=== PATIENT | male | born 1965 | race Caucasian/White ===

== ENCOUNTER 2020-11-15 21:20 | Emergency (ER) | payer MEDICAID ==
[~2020-11-15] VITALS: Ht 175.3 cm; Wt 74.0 kg
[2020-11-15 22:21] LABS: BASOPHILS % (AUTO) 1 % (0-1); EOSINOPHILS % (AUTO) 1 % (1-7); LYMPHOCYTES % (AUTO) 26 % (22-44); MEAN CORPUSCULAR HEMOGLOBIN 29.6 pg (27.5-34.5); MEAN CORPUSCULAR HGB CONC 33.6 g/dL (33.2-36.2); MEAN PLATELET VOLUME 8.5 fL (7.4-10.4); MONOCYTES % (AUTO) 9 % (2-9); NEUTROPHILS % (AUTO) 62 % (42-75); PLATELET COUNT 258 x10^3/uL (130-400); RED BLOOD COUNT 4.28 x10^6/uL (4.38-5.82); RED CELL DISTRIBUTION WIDTH 13.5 % (9.4-14.8)
[2020-11-15 22:29] LABS: MD NO
[2020-11-15 22:31] LABS: ALBUMIN 4.4 g/dL (3.4-5.0); ANION GAP 7 mmol/L (5-15); CALCIUM 9.4 mg/dL (8.5-10.1); CHLORIDE 114 mmol/L (98-107)
--- NOTE | 2020-11-16 01:32 | NUR ---
Pt from lobby to room at this time.
--- NOTE | 2020-11-16 01:40 | NUR ---
PT PRESENTS WITH LOWER QUADRANT ABDOMINAL PAIN, PT IN GOWN AND HOOKED TO ALL MONITORS, RESTING COMFORTABLY ON GURNEY
[2020-11-16] MEDS ORDERED: ONDANSETRON 2MG/ML, 2ML ONE (01:50)
[2020-11-16] MEDS ORDERED: MORPHINE SULFATE 4 MG/ML, 1ML ONE (01:50)
[2020-11-16] MEDS ORDERED: ONDANSETRON 2MG/ML, 2ML IVPush ONE (02:00)
[2020-11-16] MEDS ORDERED: MORPHINE SULFATE 4 MG/ML, 1ML IVPush ONE (02:00)
--- NOTE | 2020-11-16 02:05 | NUR ---
PT PAIN MEDS GIVEN, 20 G L AC STARTED, PT RESTING COMFORTABLY ON GURNEY
[2020-11-16] MEDS ORDERED: OMNIPAQUE 350 MG/ML, 100ML BOTTLE ONE (02:26)
[2020-11-16 03:21] LABS: BILIRUBIN, DIRECT 0.2 mg/dL (0.1-0.2)
[2020-11-16 03:23] LABS: BILIRUBIN,TOTAL 0.7 mg/dL (0.2-1.0); TOTAL PROTEIN 7.7 g/dL (6.4-8.2)
[2020-11-16] MEDS ORDERED: SODIUM CHLORIDE 0.9% 1,000ML IVBOLUS ONE (03:30)
[2020-11-16] MEDS ORDERED: SODIUM CHLORIDE FLUSH 10ML SYR IVF ONE (03:30)
[2020-11-16 03:51] VITALS: BP 164/92
--- NOTE | 2020-11-16 04:19 | NUR ---
UA COLLECTED, IVF STARTED, PT ASKED FOR TOOTH BRUSH AND TOOTHPASTE. RESTING COMFORTABLY ON GURNEY
[2020-11-16 04:22] LABS: MICROSCOPIC AUTO
--- NOTE | 2020-11-16 04:46 | NUR ---
Patient given discharge instructions and they have confirmed that they understand the instructions. Patient ambulatory with steady gait.
== END 2020-11-16 04:58 | disposition home or self-care (01) ==
LOC: ED 23:20
DX: K40.90 Unilateral inguinal hernia, without obstruction or gangrene, not specified as recurrent (principal); K59.00 Constipation, unspecified; F15.10 Other stimulant abuse, uncomplicated; F17.210 Nicotine dependence, cigarettes, uncomplicated; R30.0 Dysuria; Z72.9 Problem related to lifestyle, unspecified
CPT/HCPCS: 36415; 74021; 74177; 80048; 81001; 83690; 85025; 96374; 96375; 99285; 99406; J2270; J2405; J7030; Q9967; 82040; 82247; 82248; 84075; 84155; 84450; 84460; 96361